=== PATIENT | female | born 2000 | race Asian ===

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

== ENCOUNTER 2023-03-25 20:39 | Emergency (ER) | payer OTHER ==
[2023-03-25 20:45] VITALS: BP 106/67; PULSE 92; RESP 20; TEMP 98.5; BMI 18.9
[2023-03-25] MEDS ORDERED: DIPHTH,PERTUSS(ACELL),TET 0.5 ML DISP.SYRIN IM ONE ×2 (21:05→21:11)
== END 2023-03-25 21:38 | disposition home or self-care (01) ==
LOC: JERFT 20:39
PROC: 0HQGXZZ Repair Left Hand Skin, External Approach (ICD-10-PCS; principal; 2023-03-25)
PROC: 3E0234Z Introduction of Serum, Toxoid and Vaccine into Muscle, Percutaneous Approach (ICD-10-PCS; 2023-03-25)
DX: S61.012A Laceration without foreign body of left thumb without damage to nail, initial encounter (principal); W26.8XXA Contact with other sharp object(s), not elsewhere classified, initial encounter
CPT/HCPCS: 12001-25; 90471; 90715; 99282-25

== ENCOUNTER 2023-10-28 23:06 | Emergency (ER) | payer OTHER ==
[2023-10-28 23:11] VITALS: BMI 23.4
[2023-10-28] MEDS ORDERED: ALBUTEROL SO4 0.083% IH SOL 2.5 MG/3 ML VIAL.NEB. NEB ONE (23:31)
[2023-10-28] MEDS: ALBUTEROL SO4 0.042% IH SOL 1.25 MG/3 ML VIAL.NEB NEB ONE (23:34)
[2023-10-29] MEDS: LACTATED RINGERS SOLUTION 1000 ML INFUS.BAG IV ONE (00:54)
[2023-10-29 01:01] LABS: BASO % 0.9 % (0-2.0); EOS % 1.2 % (0-4.5); HEMATOCRIT 28.1 % (32.4-45.2); HEMOGLOBIN 9.5 GM/dL (10.7-15.3); LYMPH % 14.1 % (8-40); MCH 28.6 pg (25.7-33.7); MCHC 33.8 g/dl (32.0-36.0); MEAN CELL VOLUME 84.6 fl (80-96); MEAN PLT VOLUME 9.1 fl (7.5-11.1); MONO % 6.5 % (3.8-10.2); NEUT % 77.3 % (42.8-82.8); PLATELET COUNT 186 10^3/uL (134-434); RBC 3.31 M/mm3 (3.60-5.2); RDW 13.7 % (11.6-15.6); WHITE BLOOD COUNT 7.6 K/mm3 (4.0-10.0)
[2023-10-29 01:18] LABS: POTASSIUM 3.3 mmol/L (3.5-5.1)
[2023-10-29 01:20] LABS: ALBUMIN 2.7 g/dl (3.4-5.0); BLOOD UREA NITROGEN 3.9 mg/dL (7-18); CALCIUM 8.3 mg/dL (8.5-10.1)
[2023-10-29 01:23] LABS: CREATININE 0.3 mg/dL (0.55-1.3)
[2023-10-29 01:25] LABS: BILIRUBIN,TOTAL 0.2 mg/dL (0.2-1); TOT PROT 6.1 g/dl (6.4-8.2)
[2023-10-29] MEDS ORDERED: POTASSIUM CHLORIDE ORAL LIQUID 20 MEQ/15 ML ONE (02:19)
[2023-10-29] MEDS: POTASSIUM CHLORIDE ORAL LIQUID 20 MEQ/15 ML PO ONE (02:20)
[2023-10-29 03:57] VITALS: BP 109/63; PULSE 92; RESP 18; TEMP 98.1
== END 2023-10-29 04:40 | disposition home or self-care (01) ==
LOC: JER 23:06
PROC: 3E0F7GC Introduction of Other Therapeutic Substance into Respiratory Tract, Via Natural or Artificial Opening (ICD-10-PCS; principal; 2023-10-28)
DX: R05.9 Cough, unspecified (principal); R07.89 Other chest pain; R09.89 Other specified symptoms and signs involving the circulatory and respiratory systems; Z20.822 Contact with and (suspected) exposure to COVID-19
CPT/HCPCS: 0241U-QW; 36415; 80053; 84484; 85025; 93005; 93010; 93970-TC; 99285-25